=== PATIENT | female | born 1965 | race Caucasian/White ===

== ENCOUNTER → 2017-04-17 | Outpatient (CLI) | payer BC ==
--- NOTE | 2017-04-20 16:30 | Diagnostic Imaging Report ---
EXAMINATION: Bilateral screening mammogram 2D views with tomosynthesis. The current study was also evaluated with a Computer Aided Detection (CAD) system. INDICATION: Screening. PERSONAL HISTORY: No current complaints stated on the questionnaire. COMPARISON: 01/18/2016. FINDINGS: The breasts are composed of heterogeneously dense parenchyma which may decrease mammographic sensitivity. There is a 7 mm oval asymmetry along the central aspect of the right MLO view which is persistent on the tomographic view #15 out of 75. The CC projection demonstrates no definitive correlate. The left breast demonstrates no definite mass or suspicious calcification. IMPRESSION: Focal compression views and ultrasound evaluation for central posterior right MLO view asymmetry is recommended. ACR BI-RADS Category 0: Incomplete. (Needs additional imaging evaluation). Result letter will be mailed to the patient. Note: At least 10% of breast cancer is not imaged by mammography. Dictated by: Dictated on workstation # [id number]
== END ==
LOC: RAD 13:34
PROVIDERS: ATTEND Nurse Practitioner
DX: Z12.31 Encounter for screening mammogram for malignant neoplasm of breast (principal)
CPT/HCPCS: 77067

== ENCOUNTER → 2017-05-29 | Outpatient (CLI) | payer BC ==
--- NOTE | 2017-05-29 20:41 | Diagnostic Imaging Report ---
EXAMINATION: Ultrasound of the right breast. INDICATION: Abnormal screening mammogram. FINDINGS: The screening mammogram performed on 04/17/2017 noted a 7 mm oval asymmetry in the central aspect of the breast. The diagnostic mammogram performed earlier today indicated that this density did seem to persist. On this study, there are two small (7 mm or less) rounded hypoechoic avascular lesions in the 9-10 o'clock position roughly 7 cm from the nipple. These do have the appearance of small cysts. I suspect that one of these corresponds to the density seen on the mammogram. There are no solid lesions to indicate malignancy. IMPRESSION: The nodular density seen on the mammogram is most likely a cyst. It may prove worthwhile to have a short-term (six-month) follow-up mammogram and ultrasound for continued evaluation. ACR BI-RADS Category 3: Probably benign findings. Dictated by: Dictated on workstation # [id number]
--- NOTE | 2017-05-30 09:36 | Diagnostic Imaging Report ---
EXAMINATION: Unilateral diagnostic right mammogram. INDICATION: Abnormal screening mammogram The current study was also evaluated with a Computer Aided Detection (CAD) system. The screening mammogram performed on 04/17/17 noted a 7 MM of oval asymmetry along the central aspect of the right breast. This finding seems to persist on the compression view of this area in the MLO projection and is still evident on the ML view as well. This density is difficult to visualize on the craniocaudad view however. It is possible this finding could be secondary to superimposition. Even so, I would recommend that ultrasound of the right breast be performed for further study. IMPRESSION: Ultrasound would be recommended for further evaluation of the right breast. ACR BI-RADS Category 0: Incomplete. (Needs additional imaging evaluation). Result letter will be mailed to the patient. Note: At least 10% of breast cancer is not imaged by mammography. Dictated by: Dictated on workstation # [id number]
== END ==
LOC: RAD 07:53
PROVIDERS: ATTEND Nurse Practitioner
DX: R92.8 Other abnormal and inconclusive findings on diagnostic imaging of breast (principal)

== ENCOUNTER → 2018-04-19 | Outpatient (CLI) | payer BC ==
--- NOTE | 2018-04-19 13:40 | Diagnostic Imaging Report ---
INDICATION: Routine screening. COMPARISON: 04/17/2017 and 01/18/2016. TECHNIQUE: Screening digital mammography was performed bilaterally with a Computer Aided Detection (CAD) system. FINDINGS: Scattered fibroglandular densities are identified bilaterally. No spiculated masses or malignant appearing microcalcifications are seen. The axillae are unremarkable. IMPRESSION: No mammographic features suspicious for malignancy are identified. ACR BI-RADS Category 1: Negative. Result letter will be mailed to the patient. Note: At least 10% of breast cancer is not imaged by mammography. Dictated by: Dictated on workstation # [id number]
== END ==
LOC: RAD 10:11
PROVIDERS: ATTEND Nurse Practitioner
DX: Z12.31 Encounter for screening mammogram for malignant neoplasm of breast (principal)
CPT/HCPCS: 77067

== ENCOUNTER → 2022-08-07 | Outpatient (CLI) | payer BC ==
--- NOTE | 2022-08-08 09:10 | Diagnostic Imaging Report ---
Indication: Routine screening. Comparison is made with prior mammograms 04/19/2018 and 04/17/2017. 2-D and 3-D bilateral screening mammography was performed with CAD. Scattered fibroglandular densities are identified bilaterally. There are some circumscribed densities noted bilaterally which appears stable. No dominant mass or malignant-appearing microcalcifications are seen. Axillae are unremarkable. IMPRESSION: BI-RADS Category 2 No mammographic features suspicious for malignancy are identified. ACR BI-RADS Category 2: Benign findings. Result letter will be mailed to the patient. Note: At least 10% of breast cancer is not imaged by mammography. Dictated by: Dictated on workstation # [id number]
== END ==
LOC: RAD 15:27
PROVIDERS: ATTEND Family Medicine
DX: Z12.31 Encounter for screening mammogram for malignant neoplasm of breast (principal)
CPT/HCPCS: 77063; 77067